=== PATIENT | female | born 1950 | race Caucasian/White ===

== ENCOUNTER → 2023-02-19 12:04 | Outpatient (CLI) | payer OTHER, SELFPAY ==
[2023-02-19 14:08] LABS: Uric Acid 3.6 mg/dL (2.5-6.2)
[2023-02-19 14:11] LABS: Rheumatoid Factor < 8.6 IU/mL (<12.0)
[2023-02-19 14:42] LABS: Vitamin D 25 Hydroxy (D3) 58.7 ng/mL (30.0-100.0)
== END ==
PROVIDERS: PCP Naturopath; Referring Provider Naturopath; Visit Provider Naturopath
DX: E55.9 Vitamin D deficiency, unspecified (principal); M25.541 Pain in joints of right hand; M25.542 Pain in joints of left hand
CPT/HCPCS: 36415; 82306; 84550; 86430